=== PATIENT | female | born 1980 | race Two or more races ===

== ENCOUNTER 2016-09-14 16:19 | Emergency (ER) | payer SELFPAY ==
--- NOTE | ~2016-09-14 | ER ---
PATIENT'S NAME: CESIA HOLMAN [facility] AGE: 36 Y [address] ROOM: [place] [address] LOCATION: [facility] ADMIT DATE: 09/14/2016 ER/Outpatient Report DISCHARGE DATE: 09/14/2016 FAMILY PHYSICIAN: Ac Hall MD ATTENDING PHYSICIAN: Josephine Price TIME OF ARRIVAL: 1619 hours. TIME SEEN: 1640 hours. IDENTIFICATION: A 36-year-old female. CHIEF COMPLAINT: Cough, fever, hot and cold. HISTORY OF PRESENT ILLNESS: The patient is a 36-year-old female who checked in with cough, fever, hot and cold, but then she started talking about hip pain and her history is a little bit scattered. She has had some pain kind of in the left flank and hip area, but she is able to ambulate without any difficulty. She has had fever and chills. She has felt hot and cold. She is twitching and moving a lot during her history taking. ALLERGIES: HALDOL. CURRENT MEDICATIONS: 1. Trileptal. 2. Zyprexa. 3. Trazodone. 4. Atarax. 5. Qfgg-sbj-mfqruif iron. MEDICAL PROBLEMS: MRSA, depression, schizoaffective disorder, and hepatitis C. PRIOR SURGERIES: Tubal ligation and cholecystectomy. SOCIAL HISTORY: The patient lives here in [place]. She is unemployed. Tobacco use, 1 pack per day. Alcohol use, denies. Meth, she said she has been "abstaining" and PATIENT'S NAME: CESIA HOLMAN [facility] AGE: 36 Y [address] ROOM: [place] [address] LOCATION: [facility] ADMIT DATE: 09/14/2016 ER/Outpatient Report DISCHARGE DATE: 09/14/2016 FAMILY PHYSICIAN: Ac Hall MD ATTENDING PHYSICIAN: Josephine Price the last use was 4 days ago. She denies any use today. She denies marijuana use for 5 or 6 months. FAMILY HISTORY: No pertinent family history identified. REVIEW OF SYSTEMS: All systems reviewed and negative other than what is noted in the HPI. PHYSICAL EXAMINATION: VITAL SIGNS: Height 5 feet, 2 inches and weight 87.6 kg. Blood pressure 121/71, pulse 104, respirations 20, temperature 99.6, and sats 100%. GENERAL: A 36-year-old female who is restless and moving in no acute distress. HEENT: Head: Normocephalic, atraumatic. Ears: TMs translucent both ears. Eyes: Pupils equal and reactive to light and accommodation. Extraocular movements intact. Nose: Mucosa pink. No lesions. Mouth: No lesions. Pharynx benign. NECK: Supple. No lymphadenopathy. LUNGS: Clear to auscultation. Breath sounds are equal. HEART: Regular rate and rhythm. No murmur, rub, or gallop. ABDOMEN: Bowel sounds present. Soft, nondistended, tender to palpation in the low abdomen. No rebound or guarding. No CVA tenderness. SKIN: The patient has multiple areas of excoriation. NEURO: The patient is alert and oriented x4. Cranial nerves 2 through 12 grossly intact. Motor strength 5/5 throughout. Sensation is intact to light touch. LABORATORY DATA: Sodium 135, potassium 4.2, chloride 103, CO2 22, BUN 8, creatinine 0.7, blood sugar 90. Albumin low at 3.0. Liver enzymes normal. UA 10-20 white cells, 0- 2 red cells, few bacteria, and few white blood cell clumps. Urine hCG is negative. Alcohol level less than 0.010. Urine drug screen positive for amphetamines and THC. Hemoglobin 12.1, hematocrit 37.2, platelets 298, white count 11.1, normal differential. Urine hCG is negative. Pelvis x-ray negative for acute fracture or dislocation. Two-view chest x-ray, no acute process pending Radiology over-read. IMPRESSION: 1. Urinary tract infection. 2. Polysubstance abuse. PLAN: No drug use. Bactrim DS b.i.d. for 3 days. Tylenol for pain and follow up with Dr. Way in 2-3 days. Follow up sooner if any problems or concerns. PATIENT'S NAME: CESIA HOLMAN [facility] AGE: 36 Y [address] ROOM: [place], [place] [address] LOCATION: ED ADMIT DATE: 09/14/2016 ER/Outpatient Report DISCHARGE DATE: 09/14/2016 FAMILY PHYSICIAN: Ac Hall MD ATTENDING PHYSICIAN: Josephine Priec The patient understands and agrees and all questions have been answered. MD GRAYSON MANJARREZ/elena /[id number] d: 09/15/16 0032 t: 09/16/16 0800, OUTPATIENT REPORT
[~2016-09-14 16:19] MED LIST: "\\\"PREP SPRAY\\\"-TIN4 OZ"; BACTRIM SS 400/1 TAB PO; DESYREL100 MG PO; FLUOXETINE HCL20 MG PO; INVEGA SUS156 MG/1 M PO; NICODERM/HABITR21 MG TRANS; PAXIL20 MG PO; RISPERDAL1 MG PO; THERAGRAN-M1 TAB PO; TRAZODONE HCL300 MG PO
[2016-09-14 17:46] LABS: BASOPHIL # 0.1 K/uL (0.0-0.2); BASOPHIL % 0.5 %; EOSINOPHIL # 0.1 K/uL (0.0-0.5); EOSINOPHIL % 0.5 %; HEMATOCRIT 37.2 % (33.0-46.0); HEMOGLOBIN 12.1 g/dL (11.0-15.0); IMMATURE GRANULOCYTE # 0.1 K/uL (0.0-0.3); IMMATURE GRANULOCYTE % 0.5 %; LYMPHOCYTE # 1.5 K/uL (0.8-4.0); LYMPHOCYTE % 13.1 %; MCH 29.1 pg (27.0-34.0); MCHC 32.5 gm/dL (32.0-36.5); MCV 89.4 fl (83.0-98.0); MONOCYTE % 8.6 %; MPV 10.2 fl (9.4-12.4); NEUTROPHIL # (ANC) 8.5 K/uL (1.8-7.8); NEUTROPHIL % 76.8 %; NRBC % 0 /100WBC (0-0.00); PLATELET COUNT 298 K/uL (150-450); RBC 4.16 M/uL (3.50-5.50); RDW-CV 12.8 % (11.9-14.6); WBC 11.1 K/uL (4.0-11.0)
[2016-09-14 17:50] LABS: AMPHETAMINE POSITIVE (NEGATIVE); BARBITURATE NEGATIVE (NEGATIVE); COCAINE NEGATIVE (NEGATIVE); OPIATES NEGATIVE (NEGATIVE)
[2016-09-14 18:00] LABS: BILIRUBIN URINE NEGATIVE (NEGATIVE); BLOOD URINE 50 /UL (NEGATIVE); GLUCOSE URINE NEGATIVE (NEGATIVE); KETONE URINE NEGATIVE (NEGATIVE); LEUKOCYTES URINE 500 /UL (NEGATIVE); NITRITE URINE NEGATIVE (NEGATIVE); PROTEIN URINE NEGATIVE (NEGATIVE); UROBILINOGEN URINE NORMAL (NORMAL)
[2016-09-14 18:01] LABS: COLOR URINE YELLOW (YELLOW); TURBIDITY URINE CLEAR (CLEAR)
[2016-09-14 18:03] LABS: BACTERIA URINE FEW (NEGATIVE); EPITHELIAL URINE 0-2 #/HPF (NEGATIVE); RBC URINE 0-2 #/HPF (NEGATIVE); WBC CLUMPS URINE FEW (NEGATIVE)
[2016-09-14 18:29] LABS: ALK PHOS 94 IU/L (33-138); ALT 25 IU/L (12-78); ANION GAP 14.2 (10.0-19.0); AST 14 IU/L (10-40); BLOOD UREA NITROGEN 8 mg/dL (6-24); CALCIUM 8.7 mg/dL (8.5-10.5); CHLORIDE 103 mMol/L (96-110); CO2 22 mMol/L (22-32); CREATININE 0.7 mg/dL (0.5-1.1); ESTIMATED GFR (MDRD EQUATION) > 60; POTASSIUM 4.2 mMol/L (3.7-5.1); SODIUM 135 mMol/L (135-145); TOTAL BILIRUBIN 0.1 mg/dL (0.0-1.5)
== END 2016-09-14 18:35 | disposition disaster alternative care site (69) ==
LOC: GMED 16:19
PROVIDERS: Family Medicine
DX: N39.0 Urinary tract infection, site not specified (principal); F15.10 Other stimulant abuse, uncomplicated; F12.10 Cannabis abuse, uncomplicated; F32.9 Major depressive disorder, single episode, unspecified; F25.9 Schizoaffective disorder, unspecified; F17.210 Nicotine dependence, cigarettes, uncomplicated; Z88.8 Allergy status to other drugs, medicaments and biological substances; Z79.899 Other long term (current) drug therapy; Z86.14 Personal history of Methicillin resistant Staphylococcus aureus infection; Z86.19 Personal history of other infectious and parasitic diseases; Z90.49 Acquired absence of other specified parts of digestive tract
CPT/HCPCS: G0480